=== PATIENT | male | born 1960 | race Caucasian/White ===

== ENCOUNTER 2017-02-26 12:18 | Inpatient (IN) | payer BC ==
[~2017-02-26] VITALS: Ht 177.8 cm; Wt 85.0 kg
--- NOTE | ~2017-02-26 | HP ---
PATIENT'S NAME: STEPH CHILDERS [facility] AGE: 57 Y [address] ROOM: [facility] [place] [place], [place] [address] LOCATION: GPCU ADMIT DATE: 02/26/2017 History & Physical DISCHARGE DATE: FAMILY PHYSICIAN: ISABEL CUNNINGHAM ATTENDING PHYSICIAN: ROE HIGHTOWER DATE OF SERVICE: CHIEF COMPLAINT: Chest pain. HISTORY OF PRESENT ILLNESS: Mr. Childers is a pleasant 57-year-old male with history of hypertension. The patient was transferred from [facility]. He has been symptomatic since 2 weeks with complaints of, off and on chest pressure sensation and discomfort with exertion. Today, he was seen by his primary care physician and the patient was undergoing stress test and he developed recurrence of chest pain and he was also noted to have ST elevation in inferior leads, which subsided with rest. Nuclear images are pending at the time of this dictation. In view of recurrent episodes of chest pain, he was transferred to [facility] for higher level of care. 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 At the time of admission, he denied any chest pain. PAST MEDICAL HISTORY: Hypertension. CURRENT MEDICATIONS: None. REVIEW OF SYSTEMS: The patient denied any recent change in vision. No history of nausea, vomiting, diarrhea, or constipation. No history of fever, significant weight gain or weight loss. No history of cough or expectoration. No history of fever. Review of other systems was essentially negative. PERSONAL HISTORY: Nonsmoker. Occasionally has alcoholic beverages. FAMILY HISTORY: No family history of early premature coronary artery disease. SOCIAL HISTORY: The patient is and lives with his . 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 PHYSICAL EXAMINATION: PATIENT'S NAME: STEPH CHILDERS [facility] AGE: 57 Y [address] ROOM: [id number] [place], [place] [address] LOCATION: GPCU ADMIT DATE: 02/26/2017 History & Physical DISCHARGE DATE: FAMILY PHYSICIAN: ISABEL CUNNINGHAM ATTENDING PHYSICIAN: ROE HIGHTOWER GENERAL: He was alert and oriented, in no distress. VITAL SIGNS: His pulse rate is 62 beats per minute, blood pressure 146/94, respiratory rate 20, and oxygen saturation 98% on room air. HEENT: His head is atraumatic and normocephalic. Oral mucosa is moist. NECK: No significant jugular venous distention is present. CARDIOVASCULAR: S1, S2 are audible. They are regular in rate and rhythm with no audible murmur or rub. RESPIRATORY: Bilateral vesicular breath sounds are audible with no adventitious sounds. ABDOMEN: Soft and nontender. Bowel sounds present. EXTREMITIES: Showed no significant pedal edema. NEUROLOGIC: The patient is awake, alert, and oriented. LABORATORY DATA: Labs from the referring hospital showed sodium 142, potassium 4.2, chloride 100, CO2 of 29, glucose 80, BUN 16, creatinine 0.93, and calcium 9.3. AST 23, ALT 26, and GFR 75. Hemoglobin 16.5, white blood cell count 5.34, and platelet count 133. Total cholesterol 221, triglycerides 460, LDL 159, and HDL 30. His EKG showed sinus rhythm at 64 beats per minute, T-wave inversion in lead III. ASSESSMENT: 1. Coronary artery disease with unstable angina. 2. Hypertension. 3. Hyperlipidemia. PLAN: The patient was given aspirin and heparin at the referring facility. In view of his symptoms concerning for unstable angina and coronary artery disease risk factors including hypertension and hyperlipidemia, we will proceed with cardiac catheterization to evaluate for coronary artery disease. Discussed with the patient risks and benefits of cardiac catheterization and percutaneous intervention and the patient wants to proceed with it. We will continue medical therapy with aspirin, beta-blockers, Brilinta, and statins as tolerated. In view of hypertriglyceridemia, we will also add fenofibrate. We will monitor serial cardiac isoenzymes and EKGs. We will monitor the patient on telemetry to watch for any arrhythmias. The plan of care was discussed with the patient and his family. MD RAMIRO DELONG/josefl PATIENT'S NAME: STEPH CHILDERS [facility] AGE: 57 Y [address] ROOM: [place] [address] [facility] ADMIT DATE: 02/26/2017 History & Physical DISCHARGE DATE: FAMILY PHYSICIAN: ISABEL CUNNINGHAM ATTENDING PHYSICIAN: ROE HIGHTOWER /[id number] D: [id number] T: [id number] HISTORY & PHYSICAL
--- NOTE | ~2017-02-26 | CATH ---
Cardiac Interventional Report Demographics Patient Name LISETH Carrasco Gender Male Date of 1960 Age 57 year(s) Patient Number [id number] Date of Study 02/26/2017 Visit Number [id number] Room Number G6[address] [place] [id number] Ht 178 cm Wt 86.4 kg Referring [facility] Primary Physician Physician Hugh Goyal MD Performing [facility] Secondary Physician Physician Hugh Amanda MD Diagnostic [facility] Assisting Physician Physician Hugh Interventional Refugio Physician Lubricating Machine Tender Physician Treasure CARPENTER Findings and Conclusions Interventional Findings and Conclusion s/p PCI of mid and distal LAD with MERARY, promus premier 2.5/16 at 12 dalila and 3.0/28 at 14 dalila and post dilatation with 3.0 NC balloon at 14 dalila. IFR of Ramus 0.95 and not physiologically significant IFR of LAD 0.95 and not physiologically significant (moderate lesion about 40% proximal to stent in proximal LAD) IFR of prox circumflex 1.0 and and not physiologically significant Interventional Recommendations DAPT x 1yr, asa and brilinta Patient will be observed overnight. Hydration and followup creatinine. Patient has been instructed to not lift anything more than 5 pounds for 1 week. Aggressive risk factor management. Aggressive medical therapy for coronary artery disease. Optimization of medical therapy as an inpatient. Optimization of medical therapy as an outpatient. Referral to Cardiac Rehabilitation after discharge . Continuation of beta-michael, statin therapy, and FLOYD inhibitors. Procedure Description The patient was brought to the diagnostic cardiac catheterization-EP laboratory in the fasting, non-sedated state. Informed consent was obtained in the written and verbal form after the risks and benefits were explained. The patient had no further questions and agreed to proceed. The planned puncture-incision site(s) were shaved and prepped with ChloraPrep and draped in the usual sterile manner. Conscious sedation, supplemental oxygen, and pain control medications were delivered by a registered nurse under physician guidance. Surface ECG rhythm, blood pressure measurement, and pulse oximetry were monitored throughout the procedure. Arterial access. The access site was infiltrated with lidocaine. The vessel was entered with the Seldinger technique. A sheath was advanced into the vessel and used for catheter placement. Selective left coronary angiography. A catheter was advanced into the left coronary vessel ostium under Fluoroscopic guidance. Contrast was injected by hand. Images were obtained in multiple projections. Selective right coronary angiography. A catheter was advanced into the right coronary vessel ostium under fluoroscopic guidance. Contrast was injected by hand. Images were obtained in multiple projections. Left heart catheterization. A catheter was advanced across the aortic valve to the left ventricle under fluoroscopic guidance. Resting hemodynamics were obtained. Stent Placement: A guiding catheter was used to intubate the vessel. A 0.14 wire was used to cross the lesion. A Drug Eluting Stent was placed. Post placement angiograms were performed. iFR measurement was performed. The vessel was entered with a guiding catheter. The iFR wire was normalized and then advanced across the lesion. Measurements were taken. Arterial artery hemostasis was achieved. The patient was transferred to a regular nursing floor via cart accompanied by a nurse. The patient left the laboratory in stable condition. Interventional Cath Status: Emergency Procedure Procedure Type PCI procedure:Drug Eluting Coronary Stent:, LAD, Additional Imaging:, FFR/iFR:, Initial Vessel, Add'l Vessel Indications: Abnormal cardiolyte and ST wave changes. The procedure was explained in detail to the patient. Risks, complications and alternative treatments were reviewed. Written consent was obtained. Medications Reviewed with Patient prior to Procedure. Angiographic Findings Dominance: Right Cardiac Arteries and Lesion Findings LMCA: Normal (0% Stenosis). LAD: Abnormal.ProxLAD 40%, mid 95%, Distal 90% Diag 99%, small vessel Lesion on Mid LAD: Mid subsection.95% stenosis 28 mm length reduced to 0%. Pre procedure FRANSISCO II flow was noted. Post Procedure FRANSISCO III flow was present. The guidewire cross was successful.A poor run off was present.The lesion was diagnosed as a high risk lesion.Culprit lesion.Bifurcation lesion. Devices used - Runthrough NS .014 x 180. Number of passes: 1. - BMW [place] Wire .014 x. Number of passes: 1. - Emerge Balloon 2.0 x 12. 5 inflation(s) to a max pressure of: 14 dalila. - Balloon of Promus Premier 2.25 x 16 Stent. 1 inflation(s) to a max pressure of: 11 dalila. - Promus Premier 3.0 x 28 Stent. 1 inflation(s) to a max pressure of: 14 dalila. - NC Emerge Balloon 3.0 x 20. 1 inflation(s) to a max pressure of: 14 dalila. - Backtrace I/Orata Pressure Wire. Number of passes: 1. Lesion on Dist LAD: Distal subsection.90% stenosis 16 mm length reduced to 0%. Pre procedure FRANSISCO II flow was noted. Post Procedure FRANSISCO III flow was present. The guidewire cross was successful.A poor run off was present.The lesion was diagnosed as a moderate risk lesion.Culprit lesion. Devices used - Promus Premier 2.25 x 16 Stent. 6 inflation(s) to a max pressure of: 11 dalila. Lesion on Prox LAD: Proximal subsection.40% stenosis . Lesion on Prox LAD: Ostial.99% stenosis . Lesion on Prox LAD: 40% stenosis . Lesion on Lat 1st Dia% stenosis . LCx: Abnormal.prox 50% OM 95% diffusely diseased Lesion on Prox CX: Proximal subsection.50% stenosis . Lesion on 1st Ob Laura: Proximal subsection.95% stenosis .The lesion was diffuse. RCA: Abnormal.Prox 20% PL 20% PDA mid 95% with collaterals from mid LAD Lesion on Prox RCA: Proximal subsection.20% stenosis . Lesion on 1st RPL: Proximal subsection.20% stenosis . Lesion on R PDA: Mid subsection.95% stenosis . Ramus: Abnormal.Mid 50% Lesion on Ramus: Mid subsection.50% stenosis . Cardiac Collaterals - Moderatecollateral flow from the Mid LAD to the R PDA. Coronary Tree Procedure Data Procedure Date Date: 02/26/2017Start: 03:01 PMEnd: 04:46 PM Entry Locations - Retrograde Percutaneous access was performed through the Right Radial artery (Primary location). A 6 Fr sheath was inserted. Hemostasis was successfully obtained using Mechanical Compression. Closure Comments: R band with 14 cc air in band deployed by Rajeev. Procedure Medications Order and Administration + + + + + !Time !Medication !Dosage !Route ! + + + + + !02/26/2017 02:45 !0.9% NaCl !100 ml/hr !I.V. drip ! !PM ! ! ! ! + + + + + !02/26/2017 03:00 !Versed !1 mg !I.V. ! !PM ! ! ! ! + + + + + !02/26/2017 03:01 !Fentanyl !50 mcg !I.V. ! !PM ! ! ! ! + + + + 02/26/2017 03:06 !Radial Nitroglycerin !200 mcg !I.A. ! !PM ! ! ! ! + + + + + !02/26/2017 03:07 !Radial Verapamil !1.25 mg !I.A. ! !PM ! ! ! ! + + + + + !02/26/2017 03:10 !Heparin (ACC_3) !4000 units !I.V. bolus ! !PM ! ! ! ! + + + + + !02/26/2017 03:13 !Oxygen !4 l/min !NC ! !PM ! ! ! ! + + + + + !02/26/2017 03:35 !Angiomax (Bivalirudin) !65 mg !I.V. bolus ! !PM !(ACC_5) ! ! ! + + + + + !02/26/2017 03:35 !Angiomax (Bivalirudin) !1.75 mg/kg/hr!I.V. drip ! !PM !(ACC_5) ! ! ! + + + + + !02/26/2017 03:38 !Aggrastat (Tirofiban) !2100 mcg !I.V. bolus ! !PM ! ! ! ! + + + + + !02/26/2017 03:44 !Versed !1 mg !I.V. ! !PM ! ! ! ! + + + + + !02/26/2017 04:00 !Fentanyl !50 mcg !I.V. ! !PM ! ! ! ! + + + + + 02/26/2017 04:40 !Oxygen ! !NC ! !PM ! ! ! ! + + + + + 02/26/2017 04:40 !Brilinta (Ticagrelor) !180 mg !P.O. ! !PM !(ACC_20) ! ! ! + + + + + !02/26/2017 04:45 !Hydralazine !10 mg ! ! !PM ! ! ! ! + + + + + Devices Used - A5 Fr. BS JR 4 Diag. Catheterwas used for:Right coronary angiography. - A5 Fr. BS JL 3.5 Diag. Catheterwas used for:Left coronary angiography. - A6 Fr. BS Angled Pigtail Diag. Catheterwas used for:LV Pressures. - A6 Fr. EBU 3.5 Guide Catheterwas used for:LAD Intervention. Contrast Material - Isovue [id number] ml Fluoroscopy Time: Diagnostic: 31:12 minutes. Total: 31:12 minutes. Fluoroscopy Dose: Diagnostic: 3115 mGy. Total: 3115 mGy. Estimated Blood Loss: 20 ml. Additional [facility] PCI Information PCI Indication:PCI for high risk Non-STEMI or unstable angina. Medical History Allergies - No known allergies. Risk Factors The patient risk factors include:hypercholesterolemia, hypertension, last creatinine: 0.9 mg/dl, creatinine clearance: 112 ml/min and dyslipidemia. Admission Data Admission Date: 02/26/2017 Admission Time: 12:18 PM Admit Source: Transfer acute care facility Insurance Payors: Private health insurance. Admission Medications + +------+-----+---------+---------+ + + !Medication !Dosage!Times!Last !Last !Administered !Comments ! ! ! !Per !Delivery !Delivery ! ! ! ! ! !Day !Date !Time ! ! ! + +------+-----+---------+---------+ + + !Aspirin (any) ! ! ! ! ! ! ! + +------+-----+---------+---------+ + + !Unfractionated ! ! ! ! ! ! ! !Heparin (any) ! ! ! ! ! ! ! + +------+-----+---------+---------+ + + Clinical Evaluation Leading to Procedure - The patient's CAD presentation was assessed as: Unstable angina. - The patient's anginal syndrome during the past two weeks was assessed as: Class IV according to the [place] Cardiovascular Society Classification System (CCS). Hemodynamics Condition: Rest O2 Consumption: Estimated: 248.38Heart Rate: 78 bpm Pressures (mmHg) +-----+ + !Site !Pressure ! +-----+ + !AO !98/61 (75) ! +-----+ + !LV !116/-4 ,5 ! +-----+ + !AO !114/60 (83) ! +-----+ + Shunts Oxygen Values O2 Capacity 224.4 O2 Consumption 248.38 Signatures dtt: TREASURE EVANS dtd: 02/26/17 1501 Physician Self Edit
--- NOTE | ~2017-02-26 | ECHO ---
Transthoracic Echocardiography Report (TTE) Demographics Patient Name STEPH CHILDERS Date of Study 02/27/2017 Patient Number [id number] Visit Number [id number] Date of 1960 Room Number G6336 Gender Male Number Age 57 year(s) Referring [facility] Client Project Coordinator Isai Zhou RVT Physician Hugh Goyal MD Physician Interpreting [facility] [employer] Electric Distribution Engineer Physician Refugio Amanda MD Supervising Ordering [facility] Reese MD/RIMMA Physician Nurse Stress Steel Loader Conclusions Contractility Score Summary Normal Left Ventricular contractility was noted. Summary Normal LV/RV size and systolic function. The estimated left ventricular ejection fraction is 55-60%. Moderate concentric left ventricular hypertrophy. Diastolic assessment reveals Grade II pseudonormal diastolic function . No significant valvular abnormalities. No evidence of pericardial effusion. Procedure Type of Study TTE procedure:2D Echocardiogram. Procedure Date Date: 02/27/2017 Start: 09:54 AM Study Location: Inpatient Portable Technical Quality: Adequate visualization Indications:Post PTCA. Appropriate Use Criteria: 9 Patient Status: Routine HR: 60 bpm BP: 108/67 mmHg Allergies - No known allergies. M-Mode/2D Measurements LV Diastolic Dimension: 4.35 cm LV Systolic Dimension: 3.37 cm LV Septum Diastolic: 1.52 cm LV PW Diastolic: 1.24 cm AO Root Dimension: 2.8 cm Cardiac Output: 2.49 l/min AV Cusp Separation: 2.3 cm RV Diastolic Dimension: 2.9 cm LVOT: 2 cm LVOT VTI: 13.2 cm RV Base: 2.48 cm LV Stroke volume: 41.45 ml RV Length: 6.18 cm TAPSE: 1.61 cm TDI-S': 11.4 cm/s Doppler Measurements AV Peak Velocity: 1.3 m/s MV Peak E-Wave: 0.58 m/s AV Peak Gradient: 6.76 mmHg MV Peak A-Wave: 0.48 m/s AV Mean Gradient: 4 mmHg MV E/A Ratio: 1.22 LVOT Peak Velocity: 0.65 m/s MV P1/2t: 82 msec PV Peak Velocity: 0.9 m/s E' Septal Velocity: 0.06 m/s PV Peak Gradient: 3.21 mmHg E' Lateral Velocity: 0.11 m/s A' Septal Velocity: 0.08 m/s A' Lateral Velocity: 0.08 m/s Findings Left Ventricle Moderate concentric left ventricular hypertrophy. Diastolic assessment reveals Grade II pseudonormal diastolic function . L wave present. Right Ventricle Normal right ventricle structure and function. Left Atrium Normal left atrial size. Right Atrium Normal right atrial size. IVC measures 1.26 cm with inspiratory collapse. Mitral Valve Normal mitral valve structure and function. Aortic Valve Mild AV sclerosis. Tricuspid Valve Normal tricuspid valve structure and function. Pulmonic Valve Normal pulmonic valve structure and function. Pericardial Effusion No evidence of pericardial effusion. Miscellaneous Visualized portions of the aortic root and ascending aorta appear normal in size. Pleural Effusion No evidence of pleural effusion. Contractility Score LV regional wall motion:(0-Non visualized 1-Normal 2-Hypokinesis 3-Akinesis 4-Dyskinesis 5-Aneurysm) Signature dtt: HENRY EVANS dtd: 02/27/17 0954 Physician Self Edit
[2017-02-26] MEDS ORDERED: ADVIL200 MG PO (18:59)
[2017-02-27 03:39] LABS: ALBUMIN 3.5 gm/dL (3.5-5.0); ALK PHOS 62 IU/L (33-138); ALT 43 IU/L (12-78); AST 61 IU/L (10-40); BLOOD UREA NITROGEN 17 mg/dL (6-24); CALCIUM 8.3 mg/dL (8.5-10.5); CHLORIDE 107 mMol/L (96-110); CO2 24 mMol/L (22-32); CREATININE 0.9 mg/dL (0.6-1.3); SODIUM 138 mMol/L (135-145); TOTAL BILIRUBIN 0.9 mg/dL (0.0-1.5); TOTAL PROTEIN 6.5 g/dL (6.0-8.4)
[2017-02-28 04:51] LABS: BASOPHIL % 0.5 %; EOSINOPHIL % 0.7 %; HEMATOCRIT 42.3 % (37.0-53.0); HEMOGLOBIN 14.9 g/dL (12.0-17.0); IMMATURE GRANULOCYTE % 0.5 %; LYMPHOCYTE # 1.3 K/uL (0.8-4.0); LYMPHOCYTE % 22.2 %; MCH 31.4 pg (27.0-34.0); MCHC 35.2 gm/dL (32.0-36.5); MCV 89.2 fl (83.0-98.0); MONOCYTE # 0.8 K/uL (0.0-1.0); MONOCYTE % 12.9 %; MPV 10.1 fl (9.4-12.4); NEUTROPHIL # (ANC) 3.8 K/uL (1.4-9.0); NEUTROPHIL % 63.2 %; NRBC % 0 /100WBC (0-0.00); PLATELET COUNT 116 K/uL (150-450); RBC 4.74 M/uL (4.00-6.00); RDW-CV 12.6 % (11.9-14.6)
[2017-02-28 04:56] LABS: ANION GAP 9.1 (10.0-19.0); CALCIUM 8.4 mg/dL (8.5-10.5); POTASSIUM 4.1 mMol/L (3.7-5.1)
[2017-02-28] MEDS ORDERED: ASPIRIN EC81 MG PO (11:59)
[2017-02-28] MEDS ORDERED: LIPITOR80 MG PO (12:00)
[2017-02-28] MEDS ORDERED: LOPRESSOR50 MG PO (12:01)
[2017-02-28] MEDS ORDERED: VASOTEC2.5 MG PO (12:01)
[2017-02-28] MEDS ORDERED: BRILINTA90 MG PO (12:02)
[2017-02-28] MEDS ORDERED: NITROSTAT0.4 MG SL (12:05)
== END 2017-02-28 13:39 | disposition disaster alternative care site (69) | DRG 246 ==
LOC: GPCU 12:18
PROVIDERS: Internal Medicine Interventional Cardiology; ADMIT Internal Medicine Interventional Cardiology
PROC: 4A023N7 Measurement of Cardiac Sampling and Pressure, Left Heart, Percutaneous Approach (ICD-10-PCS; principal; 2017-02-26)
PROC: 027 Heart and Great Vessels, Dilation (ICD-10-PCS; principal; 2017-02-26)
DX: I25.110 Atherosclerotic heart disease of native coronary artery with unstable angina pectoris (principal); I21.4 Non-ST elevation (NSTEMI) myocardial infarction; E78.5 Hyperlipidemia, unspecified; I10 Essential (primary) hypertension
CPT/HCPCS: A9270; C1725; C1769; C1874; C1887; C9606; J0360; J0583; J1644; J2250; J2270; J2405; J3010; J3246; J7030; J7050; J7060